=== PATIENT | female | born 1985 | race Caucasian/White ===

== ENCOUNTER → 2021-07-28 17:00 | Outpatient (CLI) | payer BC, SELFPAY ==
[2021-07-28 18:35] LABS: Basophils # 0.1 K/mm3 (0-0.2); Basophils % 0.8 % (0.1-2.0); Eosinophils # 0.2 K/mm3 (0.0-0.4); Eosinophils % 2.2 % (0.1-12.0); Hematocrit 43.4 % (37.0-47.0); Lymphocytes # 2.9 K/mm3 (0.7-4.5); Lymphocytes % 28.4 % (10-50); Mean Corpuscular HGB Conc 32.2 g/dL (31.8-35.4); Mean Corpuscular Hemoglobin 29.5 pg (27.0-31.2); Mean Corpuscular Volume 91.6 fl (81-99); Monocytes # 0.5 K/mm3 (0.1-1.0); Neutrophils # 6.5 K/mm3 (1.8-7.8); Neutrophils % 63.6 % (37.0-80.0); Platelet Count 360 K/mm3 (142-424); Red Blood Count 4.74 M/mm3 (4.20-5.40); Red Cell Distribution Width 13.6 % (11.5-17.5); White Blood Count 10.2 K/mm3 (4.8-10.8)
[2021-07-28 19:08] LABS: Hemoglobin A1C 5.1 % (4.0-6.0)
[2021-07-28 19:12] LABS: Alanine Aminotransferase 31 U/L (12-78); Albumin Level 4.4 g/dl (3.5-5.0); Albumin/Globulin Ratio 1.4 (1.1-1.8); Alkaline Phosphatase 114 U/L (38-126); Anion Gap 14.4 mEq/L (5-15); Aspartate Amino Transferase 29 U/L (14-36); Bilirubin,Total 0.4 mg/dl (0.2-1.3); Blood Urea Nitrogen 11 mg/dl (7-17); Calcium 9.4 mg/dl (8.4-10.2); Carbon Dioxide 27 mmol/L (22.0-30.0); Chloride 102 mmol/L (98-107); Chol/HDL Ratio 4.1 (1-3.5); Cholesterol 177 mg/dl (140-200); Estimated Glomerular Filt Rate 113 ml/min (>60); GFR (African American) 137 ML/MIN (>60); Globulin 3.2 g/dL (1.3-3.2); Glucose 73 mg/dl (74-100); HDL Cholesterol 43 mg/dl (40-60); Potassium 4.4 mmoL/L (3.5-5.1); Sodium 139 mmol/L (136-145); Total Protein,Serum 7.6 g/dl (6.3-8.2); Triglycerides 84 mg/dl (30-150); VLDL Cholesterol 17 mg/dL (0-40)
[2021-07-28 19:23] LABS: Direct LDL Cholesterol 99.29 mg/dL (100-129)
[2021-07-28 19:28] LABS: T4 (Thyroxine) 6.9 ug/dl (5.53-11.0)
[2021-07-28 19:29] LABS: 25-OH Vitamin D, Total 14.2 ng/mL (30-100)
[2021-07-28 19:41] LABS: Thyroid Stimulating Hormone 1.85 uIU/mL (0.465-4.68)
== END ==
PROVIDERS: Visit Provider Nurse Practitioner Family
DX: Z76.89 Persons encountering health services in other specified circumstances (principal); F41.9 Anxiety disorder, unspecified; E66.9 Obesity, unspecified; E55.9 Vitamin D deficiency, unspecified; Z79.899 Other long term (current) drug therapy
CPT/HCPCS: 80053; 80061; 82306; 83036; 84436; 84443; 85025

== ENCOUNTER 2023-01-29 15:37 | Emergency (ER) | payer BC, SELFPAY ==
[2023-01-29 16:00] VITALS: BP 135/98; PULSE 98; RESP 18; TEMP 36.8; O2SAT 100; BMI 54.1
--- NOTE | 2023-01-29 16:54 | EXP.UTC ---
Discharge Plan Disposition Patient Disposition: Home, Self-Care Condition: Good Prescriptions Prescriptions: New mupirocin 2 % ointment 1 applic topical BID Qty: 22 0RF No Action quetiapine 100 mg tablet 100 mg PO DAILY venlafaxine 150 mg capsule,extended release 24hr 150 cap PO DAILY propranolol 60 mg capsule,extended release 24 hr PO sumatriptan succinate 100 mg tablet PO norethindrone (contraceptive) [Sharobel] 0.35 mg tablet 0.35 mg PO DAILY Patient Comments: TAKE 1 TABLET BY MOUTH ONCE DAILY ergocalciferol (vitamin D2) 1,250 mcg (50,000 unit) capsule 50,000 unit PO QWEEK Qty: 12 0RF bupropion HCl 300 mg tablet extended release 24 hr 300 mg PO DAILY Patient Comments: TAKE 1 TABLET BY MOUTH EVERY MORNING. Qulipta 60 mg tablet 60 mg PO DAILY Patient Comments: TAKE 1 TABLET BY MOUTH EVERY DAY Referrals Follow up/Referrals: Aundrea Arshad APRN [Primary Care Provider] - See instructions Clinical Impressions Clinical Impression: Paronychia of finger of left hand Instructions Patient Instructions: DI for Paronychia Discharge ED Provider: Renu Mayberry [facility] General Stated complaint: Spot on L hand Mode of Arrival: Ambulatory Source of Information: Patient Limitations: No Limitations Time Seen by Provider: 01/29/23 16:28 Description of Symptoms (Recalled from Triage Doc. by RN): left ring finger is infected HEENT Symptoms (Recalled from RN notes): No Resp Symptoms (Recalled from RN notes): No Skin Symptoms (Recalled from RN notes): Yes MS Symptoms (Recalled from RN notes): No Functional Status (Recalled from RN notes): n/a History of Present Illness Provider Complaint: left ring finger with pain, redness, and swelling. Has not done any treatment. Related Data Home Medications Medication Instructions Recorded Confirmed norethindrone (contraceptive) 0.35 0.35 mg PO DAILY b/c 07/28/21 01/29/23 mg tablet (Sharobel) propranolol 60 mg capsule,24 cap PO 07/28/21 07/28/21 hr,extended release quetiapine 100 mg tablet 100 mg PO DAILY 07/28/21 07/28/21 sumatriptan succinate 100 mg tablet tab PO 07/28/21 07/28/21 venlafaxine 150 mg 150 cap PO DAILY . 07/28/21 01/29/23 capsule,extended release 24 hr atogepant 60 mg tablet (Qulipta) 60 mg PO DAILY . 01/29/23 01/29/23 bupropion HCl 300 mg 24 hr tablet, 300 mg PO DAILY mood 01/29/23 01/29/23 extended release Previous Rx's Medication Instructions Recorded ergocalciferol (vitamin D2) 1,250 50,000 unit PO QWEEK #12 caps 08/04/21 mcg (50,000 unit) capsule mupirocin 2 % topical ointment 1 applic topical BID #22 grams 01/29/23 Allergies Allergy/AdvReac Type Severity Reaction Status Date / Time No Known Allergies Allergy Verified 01/29/23 16:17 Worker's Comp Is this a Worker's Comp case?: No [facility] Dis[facility]: The information contained in this section may have been updated after the patient was seen, as this information can be updated by other users. Social History Smoking Status: Current every day smoker alcohol intake: never current occupational status: unemployed Travel in the last 8 weeks: None ROS Obtained: Yes All systems reviewed & no additional complaints except as documented Constitutional Constitutional: Reports system reviewed and no additional complaints, except as documented Eyes Eyes: Reports system reviewed and no additional complaints, except as documented ENT Ears, Nose, Mouth, and Throat: Reports system reviewed and no additional complaints, except as documented Cardiovascular Cardiovascular: Reports system reviewed and no additional complaints, except as documented Respiratory Respiratory: Reports system reviewed and no additional complaints, except as documented Gastrointestinal Gastrointestingal: Reports system reviewed and no additional complaints, except as documented Genitourinary Female Genitourinary:
[2023-01-29 17:06] VITALS: BP 135/98; PULSE 98; RESP 18; TEMP 36.8; O2SAT 100
== END 2023-01-29 17:05 | disposition home or self-care (01) ==
PROVIDERS: Emergency Provider Nurse Practitioner Family; PCP Nurse Practitioner Family
DX: L03.012 Cellulitis of left finger (principal); F17.210 Nicotine dependence, cigarettes, uncomplicated
CPT/HCPCS: 99204; 99212; 99214; G0463